=== PATIENT | female | born 1975 ===

== ENCOUNTER 2020-02-17 18:38 | Emergency (ER) | payer BC ==
--- NOTE | 2020-02-17 19:18 | EDPHYS ---
Physician Documentation [facility] Name: Yue Huffman Age: 44 yrs Sex: Female : 1975 Arrival Date: 02/17/2020 Time: 18:38 Bed 8 Private MD: ED Physician Buzz Cortez HPI: 02/16 19:14 This 44 yrs old Female presents to ER via EMS with complaints of Syncope. ma2 19:14 The patient has experienced syncope. Onset: The symptoms/episode began/occurred ma2 suddenly, 1 hour(s) ago. Associated signs and symptoms: Pertinent negatives: ataxia, chest pain, confusion, diaphoresis, diarrhea. Current symptoms: Currently, the patient is not experiencing any symptoms. The patient has not experienced similar symptoms in the past. was at a resturant and passed out, bib ems, was hypotensive but now she is back to normal, she had 2 alcohol drinks.. she is aa and oriented times 4.. she does not want any blood work or ekg, i discussed the risk of having cardiac arrythmia like long qt or blocks mobitz 2 or 1, she understands risks and want to go home.. . Historical: - Allergies: 18:41 PENICILLINS; hb - Home Meds: 18:41 None [Active]; hb - PMHx: 18:41 None; hb - PSHx: 18:41 None; hb - Immunization history:: Adult Immunizations up to date. - Social history:: Smoking status: Patient denies any tobacco usage or history of. Patient/guardian denies using alcohol, street drugs. - Family history:: not pertinent. ROS: 19:14 Constitutional: Negative for fever, chills, and weight loss. ma2 19:14 All other systems are negative. Exam: 19:14 Abdomen/GI: Exam negative for ma2 19:14 Constitutional: This is a well developed, well nourished patient who is awake, alert, and in no acute distress. Head/Face: Normocephalic, atraumatic. Eyes: Pupils equal round and reactive to light, extra-ocular motions intact. Lids and lashes normal. Conjunctiva and sclera are non-icteric and not injected. Cornea within normal limits. Periorbital areas with no swelling, redness, or edema. ENT: Nares patent. No nasal discharge, no septal abnormalities noted. Tympanic membranes are normal and external auditory canals are clear. Oropharynx with no redness, swelling, or masses, exudates, or evidence of obstruction, uvula midline. Mucous membranes moist. Neck: Trachea midline, no thyromegaly or masses palpated, and no cervical lymphadenopathy. Supple, full range of motion without nuchal rigidity, or vertebral point tenderness. No Meningismus. Chest/axilla: Normal chest wall appearance and motion. Nontender with no deformity. No lesions are appreciated. Cardiovascular: Regular rate and rhythm with a normal S1 and S2. No gallops, murmurs, or rubs. Normal PMI, no JVD. No pulse deficits. Respiratory: Lungs have equal breath sounds bilaterally, clear to auscultation and percussion. No rales, rhonchi or wheezes noted. No increased work of breathing, no retractions or nasal flaring. Abdomen/GI: Soft, non-tender, with normal bowel sounds. No distension or tympany. No guarding or rebound. No evidence of tenderness throughout. Skin: Warm, dry with normal turgor. Normal color with no rashes, no lesions, and no evidence of cellulitis. MS/ Extremity: Pulses equal, no cyanosis. Neurovascular intact. Full, normal range of motion. Neuro: Awake and alert, GCS 15, oriented to person, place, time, and situation. Cranial nerves II-XII grossly intact. Motor strength 5/5 in all extremities. Sensory grossly intact. Cerebellar exam normal. Normal gait. Vital Signs: 18:39 BP 124 / 90; Pulse 85; Resp 16; Temp 97.8; Pulse Ox 100% on R/A; Weight 65.77 kg; hb Height 5 ft. 7 in. (170.18 cm); Pain 0/10; 19:34 BP 138 / 93; Pulse 81; Resp 14; Temp 98; Pulse Ox 100% ; rv 18:39 Body Mass Index 22.71 (65.77 kg, 170.18 cm) hb MDM: 19:06 Patient medically screened. [facility] 19:14 Data reviewed: vital signs, nurses notes. Counseling: I had a detailed discussion with ma2 the patient and/or guardian regarding: the historical points, exam findings, and any diagnostic results supporting the discharge/admit diagnosis, the presence of at least one elevated blood pressure reading (>120/80) during this emergency department visit, the need for outpatient follow up. Administered Medications: No medications were administered Disposition: 02/17/20 19:17 Discharged to Home. Impression: Syncope and collapse. - Condition is Stable. - Discharge Instructions: Syncope. - Medication Reconciliation Form, Thank You Letter, Antibiotic Education, Prescription Opioid Use form. - Follow up: Private Physician; When: Tomorrow; Reason: Continuance of care. Signatures: Rubi Crocker RN RN Buzz Cortez MD MD ma2 Hilton Shaw RN RN rv Corrections: (The following items were deleted from the chart) 19:34 19:17 02/17/2020 19:17 Discharged to Home. Impression: Syncope and collapse. Condition rv is Stable. Forms are Medication Reconciliation Form, Thank You Letter, Antibiotic Education, Prescription Opioid Use. Follow up: Private Physician; When: Tomorrow; Reason: Continuance of care. wv2
--- NOTE | 2020-02-17 19:18 | ER ---
Nurse's Notes [facility] Name: Yue Huffman Age: 44 yrs Sex: Female : 1975 Arrival Date: 02/17/2020 Time: 18:38 Bed 8 Private MD: Diagnosis: Syncope and collapse Presentation: 02/16 18:39 Chief complaint: Bystanders report syncopal episode from standing, then again when hb moved to sitting position. Denies injuries. BP 107/68, BGL 90. Pt recalls feeling dizzy while standing in the heat, then woke up on the floor. Coronavirus screen: At this time, the client does not indicate any symptoms associated with coronavirus-19. Ebola Screen: No symptoms or risks identified at this time. Initial Sepsis Screen: Does the patient meet any 2 criteria? No. Patient's initial sepsis screen is negative. Does the patient have a suspected source of infection? No. Patient's initial sepsis screen is negative. Risk Assessment: Do you want to hurt yourself or someone else? Patient reports no desire to harm self or others. Onset of symptoms was February 17, 2020. 18:39 Method Of Arrival: EMS: [facility] 18:39 Acuity: DOLLY 3 hb Triage Assessment: 18:41 General: Appears in no apparent distress. Behavior is calm, cooperative. Pain: Denies hb pain. EENT: No signs and/or symptoms were reported regarding the EENT system. Neuro: Level of Consciousness is awake, alert, obeys commands, Oriented to person, place, time, situation, Reports a syncopal episode. Cardiovascular: Capillary refill < 3 seconds Patient's skin is warm and dry. Respiratory: Airway is patent Respiratory effort is even, unlabored, Respiratory pattern is regular, symmetrical. GI: No signs and/or symptoms were reported involving the gastrointestinal system. : No signs and/or symptoms were reported regarding the genitourinary system. Derm: Skin is pink, warm \T\ dry. Musculoskeletal: No signs and/or symptoms reported regarding the musculoskeletal system. Historical: - Allergies: 18:41 PENICILLINS; hb - Home Meds: 18:41 None [Active]; hb - PMHx: 18:41 None; hb - PSHx: 18:41 None; hb - Immunization history:: Adult Immunizations up to date. - Social history:: Smoking status: Patient denies any tobacco usage or history of. Patient/guardian denies using alcohol, street drugs. - Family history:: not pertinent. Screenin:42 Abuse screen: Denies threats or abuse. Denies injuries from another. Nutritional hb screening: No deficits noted. Tuberculosis screening: No symptoms or risk factors identified. Fall Risk None identified. Assessment: 18:42 General: SEE TRIAGE. hb 18:46 Reassessment: Boyfriend Thierno [phone]. hb 19:33 General: Appears in no apparent distress. comfortable, Behavior is calm, cooperative. rv Pain: Denies pain. Neuro: Level of Consciousness is awake, alert, obeys commands, Oriented to person, place, time, situation. Cardiovascular: Patient's skin is warm and dry. Respiratory: Airway is patent Respiratory effort is even, unlabored. Vital Signs: 18:39 BP 124 / 90; Pulse 85; Resp 16; Temp 97.8; Pulse Ox 100% on R/A; Weight 65.77 kg; hb Height 5 ft. 7 in. (170.18 cm); Pain 0/10; 19:34 BP 138 / 93; Pulse 81; Resp 14; Temp 98; Pulse Ox 100% ; rv 18:39 Body Mass Index 22.71 (65.77 kg, 170.18 cm) hb ED Course: 18:38 Patient arrived in ED. hb 18:41 Triage completed. hb 18:41 Arm band placed on. hb 18:42 Patient has correct armband on for positive identification. Bed in low position. Call light in reach. Side rails up X 1. 19:06 Buzz Cortez MD is Attending Physician. ma2 19:08 Hilton Shaw RN is Primary Nurse. rv 19:33 No provider procedures requiring assistance completed. Patient did not have IV access rv during this emergency room visit. Administered Medications: No medications were administered Outcome: 19:17 Discharge ordered by . ma2 19:33 Discharged to home ambulatory. rv 19:33 Condition: good 19:33 Discharge instructions given to patient, Instructed on discharge instructions, follow up and referral plans. Demonstrated understanding of instructions, follow-up care. 19:34 Patient left the ED. rv Signatures: Rubi Crocker RN RN Buzz Cortez MD MD ma2 Hilton Shaw, RN RN rv
[2020-02-17 19:50] VITALS: O2SAT 100
[2020-02-17 19:52] VITALS: BP 138/93; TEMP 98
== END 2020-02-17 19:34 | disposition home or self-care (01) ==
LOC: ER 18:38
DX: R55 Syncope and collapse (principal); Z88.0 Allergy status to penicillin
CPT/HCPCS: 99283